=== PATIENT | female | born 1960 | race Caucasian/White ===

== ENCOUNTER → 2016-08-03 | Outpatient (REF) | payer BC | LOC: M SFHCPLAZ 16:54 | PROVIDERS: ATTEND Dermatology | DX: L01.00 Impetigo, unspecified (principal) ==

== ENCOUNTER → 2016-11-02 | Outpatient (REF) | payer BC, MEDICAID | LOC: M SFHCPLAZ 12:00 | PROVIDERS: ATTEND Dermatology | DX: L57.0 Actinic keratosis (principal) ==

== ENCOUNTER → 2016-12-29 | Outpatient (CLI) | payer BC, MEDICAID ==
--- NOTE | 2016-12-29 10:27 | REPMRS ---
Patient History The patient states she had a clinical breast exam in 12/10 Patient is postmenopausal and has history of skin cancer at age 39. Family history of breast cancer in paternal aunt under age 50 and breast cancer in paternal grandmother at age 50 or over. Taking unspecified hormones for 6 years. Digital Woman Screen Mammo: December 29, 2016 - Exam #: [id number] Bilateral CC and MLO view(s) were taken. Technologist: Theresa Seth, Technologist Prior study comparison: September 01, 2015, digital woman screen mammo performed at [facility]. August 19, 2014, digital woman screen mammo performed at [facility]. August 13, 2013, digital woman screen mammo performed at [facility]. FINDINGS: The breast tissue is heterogeneously dense. This may lower the sensitivity of mammography. There is a moderate amount of heterogeneously dense fibroglandular tissue which is fairly symmetric. There is no interval development of dominant mass, architectural distortion, or clustered microcalcification typical of malignancy. There has been no change in the appearance of the mammogram from the prior studies. ASSESSMENT: BI-RADS/ACR category 1 mammogram. Negative. Recommendation Routine screening mammogram of both breasts in 1 year (for women over age 40). This mammogram was interpreted with the aid of an FDA-approved computer-aided dectection system. Electronically Signed By: Jah Rosas MD 12/29/16 [id number]
== END ==
LOC: M WHC 08:32
PROVIDERS: ATTEND Obstetrics & Gynecology
DX: Z12.31 Encounter for screening mammogram for malignant neoplasm of breast (principal)

== ENCOUNTER → 2017-05-09 | Outpatient (CLI) | payer BC, MEDICAID ==
[~2017-05-09] MED LIST: ESTR1TAB PO; FISH1000 PO; LEXA1TAB PO; MONT10TA2 PO; MULT1TAB10 PO; VALS1TAB46 PO; VITA400C7 PO; VITA500T3 PO; ZYRT10TA2 PO
[2017-05-09 10:56] LABS: BASO % 0.4 % (0.0-1.0); EOS # 0.2 10^3/uL (0.0-0.50); EOS % 3.7 % (0.0-3.0); IMMATURE GRANULOCYTE % 0.2 % (0-0); LYMPH # 1.4 10^3/uL (1.5-4.5); LYMPH % 25.8 % (24.0-44.0); MEAN CORPUSCULAR HEMOGLOBIN 28.6 pg (27.0-33.0); MEAN CORPUSCULAR HGB CONC 32.1 g/dl (32.0-36.5); MEAN CORPUSCULAR VOLUME 89.2 fl (80.0-96.0); MONO # 0.4 10^3/uL (0.0-0.8); MONO % 8.1 % (0.0-5.0); NEUTROPHILS # 3.4 10^3/uL (1.8-7.7); NEUTROPHILS % 61.8 % (36.0-66.0); PLATELET COUNT, AUTOMATED 236 10^3/uL (150-450); RED CELL DISTRIBUTION WIDTH 13.4 % (11.5-14.5); WHITE BLOOD COUNT 5.5 10^3/uL (4.0-10.0)
[2017-05-09 11:30] LABS: ANION GAP 5 MEQ/L (8-16); BLOOD UREA NITROGEN 15 MG/DL (7-18); CALCIUM LEVEL 9.4 MG/DL (8.5-10.1); CARBON DIOXIDE LEVEL 33 MEQ/L (21-32); CHLORIDE LEVEL 103 MEQ/L (98-107); CREATININE FOR GFR 0.71 MG/DL (0.55-1.02); GLOMERULAR FILTRATION RATE > 60.0 (>51); GLUCOSE, FASTING 82 MG/DL (70-105); POTASSIUM SERUM 4.2 MEQ/L (3.5-5.1); SODIUM LEVEL 141 MEQ/L (136-145)
--- NOTE | 2017-05-11 00:29 | ECGEPIP ---
Stationary ECG Study [facility] Test Date: 2017-05-09 Pat Name: MAYRA POPE Department: Room: - Gender: F Assistant Center Director: AYESHA : 1960 Requested By: Vikash Mc Order Number: [id number] Reading MD: Giovani Peoples Measurements Intervals [place] Rate: 61 P: 63 KS: 179 QRS: 64 QRSD: 93 T: 56 QT: 429 QTc: 432 Interpretive Statements SINUS RHYTHM Prior tracing on 09/09/2013 at 10:00:10. Heart rate is now faster and there is better R-wave progression Electronically Signed On 05-11-2017 0:29:34 EST by Giovani Peoples
== END ==
LOC: M LAB 09:31
PROVIDERS: ATTEND Podiatrist
DX: Z01.818 Encounter for other preprocedural examination (principal)

== ENCOUNTER → 2017-05-24 | Outpatient (REF) | payer BC, MEDICAID | LOC: M SFHCLERA 11:48 | PROVIDERS: ATTEND Dermatology | DX: L57.0 Actinic keratosis (principal) ==

== ENCOUNTER 2017-05-26 07:21 | Day surgery (SDC) | payer BC, MEDICAID ==
[~2017-05-26] VITALS: Ht 170.2 cm; Wt 74.8 kg
[2017-05-26] MEDS ORDERED: LR 1,000 ML IV ONE (07:30)
[2017-05-26] MEDS ORDERED: dexameTHASONE 4 MG/ML 1ML VIAL (J1100) As Ordered ONE (08:33)
[2017-05-26] MEDS ORDERED: LIDOCAINE 2% MDV 20 ML VIAL As Ordered ONE (08:33)
[2017-05-26] MEDS ORDERED: BUPIVACAINE HCL 0.5% 30 ML VIAL As Ordered ONE (08:33)
[2017-05-26] MEDS ORDERED: BACITRACIN PWD 50,000 UNITS VIAL As Ordered ONE (08:34)
[2017-05-26] MEDS ORDERED: NEOSPORIN GU IRRIG 20 ML VIAL As Ordered ONE (08:34)
[2017-05-26] MEDS ORDERED: PROPOFOL 200 MG/20 ML VIAL As Ordered ONE ×2 (08:43→11:17)
[2017-05-26] MEDS ORDERED: LIDOCAINE 2% INJ 100 MG/5 ML SDV (FOR ANES.) As Ordered ONE (08:43)
[2017-05-26] MEDS ORDERED: MIDAZOLAM INJ 2 MG/2 ML VIAL (J2250) As Ordered ONE (08:44)
[2017-05-26] MEDS ORDERED: PROPOFOL 500 MG/50 ML VIAL As Ordered ONE (08:44)
[2017-05-26] MEDS ORDERED: fentaNYL 100 MCG/2 ML INJECTION (J3010) As Ordered ONE (08:44)
[2017-05-26] MEDS ORDERED: ceFAZolin 2 GM/D5W 50 ML IV BAG (J0690) As Ordered ONE (09:39)
[2017-05-26] MEDS ORDERED: LIDOCAINE 2% JELLY 30 ML As Ordered ONE (10:25)
[2017-05-26] MEDS ORDERED: KETOROLAC 60 MG/2 ML VIAL (J1885) As Ordered ONE (11:59)
--- NOTE | 2017-05-26 12:59 | REP ---
Right foot: Three views. History: Postop evaluation. Findings: An overlying dressing is seen. The patient is status post osteotomies of the proximal phalanges of the first two digits with metallic pins in place. The PIP joint of the second toe has been resected. There is a pin in place in the distal second metatarsal and previous osteotomy bunionectomy has been performed in the first metatarsal. Signed by Mariano Rosas MD 05/26/2017 02:44 P
[2017-05-26 13:00] VITALS: BP 182/76
--- NOTE | 2017-05-27 13:19 | RO ---
DATE OF PROCEDURE: 05/26/2017 Time of Dictation: 4:28 p.m. CHIEF COMPLAINT: Patient seen for evaluation of painful bunion deformity and hammertoe deformity of the second toe and painful second metatarsophalangeal joint of her right foot. PREOPERATIVE DIAGNOSIS: POSTPROCEDURE DIAGNOSIS: PROCEDURES: 1. Cosmo osteotomy with internal screw fixation 3.0 mm x 22 mm x 1. 2. Shortening metatarsal osteotomy, internal screw fixation 2 mm x 13 mm Arthrex QuickFix. 3. Arthroplasty with DigiFuse 2.0 x 10-degree angled. 4. Complete plantar plate repair second metatarsophalangeal joint, right foot. 5. Removal of screw first metatarsal right foot. SURGEON: Dr. Vikash Mc DPM [employer] LICENSEE: None. ANESTHESIA: Local MAC irrigation, dilute bacitracin, neomycin and polymyxin B solution IMPLANTS UTILIZED: Dart-Fire 3.0 x 22, QuickFix 2 mm x 13 mm and a DigiFuse 2.0 x 10-degree angled. DESCRIPTION OF PROCEDURE: On 05/26/2017, this 56-year-old white female was taken from her hospital room to the operating room and placed on the operating table in the supine position. Following the induction of intravenous (IV) sedation and local and regional anesthesia, the right lower extremity was prepped and draped in the usual aseptic manner. Attention was directed to the patient's right foot, and the following procedure was performed: REMOVAL OF SCREW FIRST METATARSAL RIGHT FOOT: Attention was directed to the patient's right foot, and there was noted to be a previous cicatrix over the first metatarsophalangeal joint. At this time, an incision was placed over the first metatarsal. Dissection was then carried down to the periosteum of the first metatarsal. Utilizing an osteotome, the bony overgrowth over the distal aspect of the screw was removed and a Synthes screw was removed from the first metatarsal. The following procedure was then performed: COSMO BUNIONECTOMY WITH INTERNAL SCREW FIXATION 3.0 x 22 mm x 1 RIGHT FOOT: Attention was directed to the patient's right foot, and the incision previously made for the first metatarsal screw was then extended distally to the interphalangeal joint of the hallux over the dorsal aspect medial to the extensor tendon. The incision was deepened through subcutaneous tissues, and all coursing venous tributaries were identified, underscored, clamped, cut, ligated and electrocoagulated as necessary. A linear capsulotomy was performed in the same plane as the original skin incision. The capsular and periosteal structure was then dissected free in one continuous layer dorsally, medially and laterally, thus creating a capsular periosteal-type envelope. Attention was directed into the first intermetatarsal space where the conjoined tendon was released off the fibular sesamoid. Attention was then directed to the proximal phalanx and the distal Cosmo osteotomy was performed. There was a long oblique wing with the base in a distal and medial orientation. After two wedge areas of bone were removed, the osteotomy was closed. Initially a 2.0 x 16 and 18 mm screws were placed across the osteotomy. Unfortunately, the threads did not purchase the distal side, and, therefore, incomplete fixation was obtained until a 3.0 x 22 mm screw was utilized. C-arm was utilized to verify placement and good reduction of the deformity was noted. The osteotomy was noted to be stable in all three cardinal planes. The wound was flushed with copious amounts of dilute bacitracin, neomycin and polymyxin B solution. Attention was directed towards closure where the capsular structures were coapted and maintained utilizing #2-0 Monocryl in a simple interrupted type fashion. Subcutaneous tissues were coapted and maintained with #4-0 Monocryl in a s simple interrupted type fashion. Skin incision was coapted and maintained utilizing #4-0 Prolene in a simple interrupted and horizontal mattress type fashion. Attention was then directed to the patient's second toe where the following procedure was performed: PROXIMAL INTERPHALANGEAL JOINT ARTHROPLASTY SECOND TOE, RIGHT FOOT: Attention was directed to the patient's second toe where there was noted to be a hammertoe deformity as well as an unstable second metatarsophalangeal joint. Incision was then placed from the proximal interphalangeal joint crossing obliquely across the metatarsophalangeal joint and then onto the shaft of the second metatarsal. The skin incision was then deepened and all coursing venous tributaries were electrocoagulated as encountered. A transverse tenotomy and capsulotomy was performed at the proximal interphalangeal joint and the dissection was then carried proximal, releasing the extensor expansion and peacock over the second metatarsophalangeal joint. Medial and lateral collateral ligaments were sharply dissected free over the proximal interphalangeal joint, and utilizing a sagittal saw, an osteotomy was performed at the anatomical neck of the proximal phalanx from dorsal to plantar, medial to lateral, through and through. Articular cartilage was then denuded with a sagittal saw off the base of the middle phalanx. Attention was then directed in a more proximal direction, and the following procedure was performed: COMPLETE PLANTAR PLATE REPAIR WITH SHORTENING SECOND METATARSAL OSTEOTOMY: A linear incision was then placed along the second metatarsophalangeal joint extending onto the shaft of the second metatarsal. Plantar plate was released with a metatarsal elevator and a Antoni osteotomy was performed paralleling the plantar surface of the foot. The osteotomy was shortened approximately 10 mm and temporarily fixated with a K-wire. Inspection of the plantar plate revealed a proximal tear through the plantar plate. This was mobilized and then fixated with #2 FiberWire through the plantar plate. Two diagonal drill holes were placed through the proximal phalanx, and these were then pulled to the dorsal aspect of the bone through these osseous tunnels with a fusion type retriever. The K-wire was removed, and the second metatarsal was then fixated with a 2 mm x 13 mm QuickFix screw. The osteotomy was noted to be stable in all three cardinal planes. The toe was plantar flexed, and the suture was tightened. The proximal interphalangeal joint was then stabilized with a 2 mm x 10-degree angled DigiFuse. Due to the length of the toe, the DigiFuse was not completely set into the middle phalanx. Good length was noted of the second toe when compared to the third. The extensor tendon was then coapted and maintained with a #4-0 braided nylon loop suture in a four-stranded core repair in a Gentile fashion. One peripheral stitch was then utilized to reinforce this repair. The wound was flushed with copious amounts of dilute bacitracin, neomycin and polymyxin B solution. Attention was directed towards closure where the capsular structures were coapted and maintained utilizing #2-0 Monocryl in a simple interrupted type fashion, subcutaneous tissue was coapted and maintained utilizing #4-0 Monocryl in a simple interrupted type fashion. Skin incision was coapted and maintained utilizing #4-0 Prolene with an apical stitch at the apex of the wound. The remaining sutures were simple interrupted and horizontal mattress type sutures. Attention was directed towards bandaging where a sterile compressive bandage was applied consisting of Adaptic, 4 x 4's, 4 x4 splints, George, Kerlix and Coban. Ankle pneumatic tourniquet was rapidly deflated and instantaneous capillary filling time was noted in digits 1-5 of the patient's right foot. Postoperative instructions given upon discharge.
== END 2017-05-26 14:11 | disposition home or self-care (01) ==
LOC: M SDC 07:21
PROVIDERS: ATTEND Podiatrist
DX: M20.11 Hallux valgus (acquired), right foot (principal); M20.41 Other hammer toe(s) (acquired), right foot; Z47.2 Encounter for removal of internal fixation device; I10 Essential (primary) hypertension; J30.2 Other seasonal allergic rhinitis; M50.221 Other cervical disc displacement at C4-C5 level; D64.9 Anemia, unspecified; E78.4 Other hyperlipidemia; Z88.2 Allergy status to sulfonamides; Z91.048 Other nonmedicinal substance allergy status; Z79.899 Other long term (current) drug therapy
CPT/HCPCS: 20680; 28285; 28298; 28308; 73630; 88300; 97116; C1713; J0690; J1100; J1885; J2250; J3010

== ENCOUNTER → 2017-11-06 | Outpatient (REF) | payer BC, MEDICAID | LOC: M SFHCLERA 09:14 | DX: L82.0 Inflamed seborrheic keratosis (principal) | CPT/HCPCS: 88305 ==

== ENCOUNTER → 2018-01-01 | Outpatient (CLI) | payer BC | LOC: M WHC 13:50 | DX: Z12.31 Encounter for screening mammogram for malignant neoplasm of breast (principal) | CPT/HCPCS: 77067 ==

== ENCOUNTER 2018-02-27 12:08 | Day surgery (SDC) | payer BC ==
[2018-02-27] MEDS ORDERED: PROPOFOL 200 MG/20 ML VIAL As Ordered ×2 (13:55→13:56)
== END 2018-02-27 15:20 | disposition home or self-care (01) ==
LOC: M OPP 12:08
DX: Z12.11 Encounter for screening for malignant neoplasm of colon (principal); K64.0 First degree hemorrhoids; I10 Essential (primary) hypertension; K46.9 Unspecified abdominal hernia without obstruction or gangrene; M54.2 Cervicalgia; Z79.899 Other long term (current) drug therapy; Z88.0 Allergy status to penicillin; Z88.8 Allergy status to other drugs, medicaments and biological substances; Z91.048 Other nonmedicinal substance allergy status; Z90.722 Acquired absence of ovaries, bilateral; Z90.710 Acquired absence of both cervix and uterus; Z85.828 Personal history of other malignant neoplasm of skin
CPT/HCPCS: 45378

== ENCOUNTER → 2018-05-09 | Outpatient (REF) | payer BC | LOC: M SFHCLERA 09:28 | DX: L81.4 Other melanin hyperpigmentation (principal) | CPT/HCPCS: 88305 ==

== ENCOUNTER → 2018-06-11 | Outpatient (REF) | payer BC ==
[~2018-06-11] MED LIST changes: +GABA-843 PO; +IBUP80TA PO; +ZYRT10CA5 PO; -ZYRT10TA2 PO
[2018-06-11 16:33] LABS: BASO % 0.4 % (0.0-1.0); EOS # 0.1 10^3/uL (0.0-0.50); EOS % 2.1 % (0.0-3.0); HEMATOCRIT 42.4 % (36.0-47.0); HEMOGLOBIN 13.4 g/dl (12.0-15.5); LYMPH # 1.3 10^3/uL (1.5-4.5); LYMPH % 24.9 % (24.0-44.0); MEAN CORPUSCULAR HGB CONC 31.6 g/dl (32.0-36.5); MEAN CORPUSCULAR VOLUME 88.7 fl (80.0-96.0); MONO # 0.3 10^3/uL (0.0-0.8); MONO % 5.8 % (0.0-5.0); NEUTROPHILS # 3.6 10^3/uL (1.8-7.7); NEUTROPHILS % 66.4 % (36.0-66.0); PLATELET COUNT, AUTOMATED 242 10^3/uL (150-450); RED BLOOD COUNT 4.78 10^6/uL (4.00-5.40); WHITE BLOOD COUNT 5.4 10^3/uL (4.0-10.0)
[2018-06-11 16:35] LABS: APPEARANCE, URINE CLEAR (CLEAR); BACTERIA, URINE AUTO 1+ (NEGATIVE); BILIRUBIN, URINE AUTO NEGATIVE (NEGATIVE); BLOOD, URINE BLOOD NEGATIVE (NEGATIVE); COLOR, URINE YELLOW (YELLOW); GLUCOSE, URINE (UA) AUTO NEGATIVE (NEGATIVE); KETONE, URINE AUTO NEGATIVE (NEGATIVE); LEUKOCYTE ESTERASE, URINE AUTO NEGATIVE (NEGATIVE); MUCUS, URINE SMALL (NEGATIVE); NITRITE, URINE AUTO NEGATIVE (NEGATIVE); PROTEIN, URINE AUTO NEGATIVE (NEGATIVE); RBC, URINE AUTO 2 /HPF (0-3); SPECIFIC GRAVITY URINE AUTO 1.017 (1.002-1.035); SQUAMOUS EPITHELIAL CELL UR AU 2 /HPF (0-6); UROBILINOGEN, URINE AUTO 0.2 mg/dL (0.0-2.0); WBC, URINE AUTO 0 /HPF (0-3)
[2018-06-11 16:45] LABS: ALBUMIN 3.8 GM/DL (3.2-5.2); ALT/SGPT 28 U/L (12-78); BILIRUBIN,TOTAL 0.3 MG/DL (0.2-1.0); BLOOD UREA NITROGEN 17 MG/DL (7-18); C REACTIVE PROTEIN QUANTITATIV 0.68 MG/DL (0.00-0.30); CALCIUM LEVEL 8.8 MG/DL (8.5-10.1); CARBON DIOXIDE LEVEL 30 MEQ/L (21-32); CHLORIDE LEVEL 105 MEQ/L (98-107); COMPLEMENT C3 127 MG/DL (90-180); COMPLEMENT C4 26 MG/DL (10-40); CPK CREATINE PHOSPHOKINASE 194 U/L (26-192); CREATININE FOR GFR 0.78 MG/DL (0.55-1.30); FREE T4 0.88 NG/DL (0.76-1.46); GLOMERULAR FILTRATION RATE > 60.0 (>51); GLUCOSE, FASTING 94 MG/DL (70-100); RHEUMATOID FACTOR QUANT < 10.0 IU/ML (<15.0); SODIUM LEVEL 140 MEQ/L (136-145); TOTAL PROTEIN 7.3 GM/DL (6.4-8.2)
[2018-06-11 16:47] LABS: TOTAL 25(OH) VITAMIN D 32.7 NG/ML (30.0-100.0)
[2018-06-11 16:54] LABS: TOTAL PROTEIN,RANDOM URINE 14.4 MG/DL (0.0-12.0)
[2018-06-11 17:06] LABS: ERYTHROCYTE SEDIMENTATION RATE 5 mm/hr (0-30)
[2018-06-12 12:50] LABS: DRVV SCREEN 37.4 SEC
[2018-06-12 12:55] LABS: PTT LUPUS TYPE ANTICOAG SCREEN 0.9 (0-1.2)
[2018-06-16 00:25] LABS: ANA (HEP2) Negative (.); ANTI DOUBLE STRAND-DNA AB 1 IU/mL (0-9); BETA-2 GLYCOPROTEIN I ABY IGA <9 (0-25); BETA-2 GLYCOPROTEIN I ABY IGG <9 (0-20); BETA-2 GLYCOPROTEIN I ABY IGM <9 (0-32); CARDIOLIPIN IGA ANTIBODY <9 APL U/mL (0-11); CARDIOLIPIN IGG ANTIBODY <9 GPL U/mL (0-14); CARDIOLIPIN IGM ANTIBODY <9 MPL U/mL (0-12); CYCLIC CITRULLINATED PEPTIDE 6 units (0-19); RNP ANTIBODY < 0.2 AI (0.0-0.9); SMITHS ANTIBODY < 0.2 AI (0.0-0.9); SSA SJOGRENS A <0.2 AI (0.0-0.9); SSB SJOGRENS B <0.2 AI (0.0-0.9)
== END ==
LOC: M SFHCPLAZ 14:09
PROVIDERS: ATTEND Internal Medicine Rheumatology
DX: R76.8 Other specified abnormal immunological findings in serum (principal)

== ENCOUNTER → 2018-12-25 | Outpatient (REF) | payer BC ==
[~2018-12-25] MED LIST changes: +CYAN500T8 PO; -VALS1TAB46 PO; +VALS1TAB66 PO; -VITA500T3 PO
== END ==
LOC: M SFHCPLAZ 09:37
PROVIDERS: ATTEND Dermatology
DX: D49.2 Neoplasm of unspecified behavior of bone, soft tissue, and skin (principal)

== ENCOUNTER → 2019-01-07 | Outpatient (CLI) | payer BC ==
--- NOTE | 2019-01-07 12:11 | REPMRS ---
Patient History The patient states she had a clinical breast exam in 12/2018. Patient is postmenopausal and has history of basal and squamous cell skin cancer starting at age 39. Family history of breast cancer at age 50 or over in paternal grandmother, breast cancer under age 50 in paternal aunt, breast cancer at age 51 in maternal cousin. Taking unspecified hormones for 8 years. 3D TOMOSYNTHESIS WAS PERFORMED. The [facility] lifetime risk for breast cancer is 13.2%. Digital Woman Screen Mammo: January 07, 2019 - Exam #: [id number] Bilateral CC and MLO view(s) were taken. Technologist: Akua Rodriguez, Technologist Prior study comparison: January 01, 2018, bilateral digital woman screen mammo performed at [facility]. December 29, 2016, digital woman screen mammo performed at [facility]. FINDINGS: The breast tissue is heterogeneously dense. This may lower the sensitivity of mammography. There has been no change in the appearance of the mammogram from the prior studies. There is a moderate amount of residual fibroglandular tissue which is fairly symmetric. There is no interval development of dominant mass, areas of architectural distortion, or clustered microcalcification typical of malignancy. Assessment: BI-RADS/ACR category 1 mammogram. Negative Mammogram. Recommendation Routine screening mammogram in 1 year (for women over age 40). This mammogram was interpreted with the aid of an FDA-approved computer-aided dectection system. Electronically Signed By: Sanford Calero MD 01/07/19 0204
== END ==
LOC: M WHC 11:06
PROVIDERS: ATTEND Obstetrics & Gynecology
DX: Z12.31 Encounter for screening mammogram for malignant neoplasm of breast (principal); Z78.0 Asymptomatic menopausal state; Z79.890 Hormone replacement therapy

== ENCOUNTER → 2019-02-26 | Outpatient (REF) | payer BC | LOC: M SFHCPLAZ 10:16 | PROVIDERS: ATTEND Dermatology | DX: D23.4 Other benign neoplasm of skin of scalp and neck (principal) ==

== ENCOUNTER → 2019-04-11 | Outpatient (REF) | payer BC | LOC: M SFHCPLAZ 10:27 | PROVIDERS: ATTEND Dermatology | DX: D49.2 Neoplasm of unspecified behavior of bone, soft tissue, and skin (principal) ==

== ENCOUNTER → 2019-07-25 | Outpatient (REF) | payer BC | LOC: M LAB REF 09:40 | PROVIDERS: ATTEND Dermatology | DX: L57.0 Actinic keratosis (principal); L11.1 Transient acantholytic dermatosis [Grover] ==

== ENCOUNTER → 2019-12-08 | Outpatient (CLI) | payer BC ==
[~2019-12-08] MED LIST changes: -MONT10TA2 PO; +MONT10TA4 PO
== END ==
LOC: M LABSMTC 09:56
PROVIDERS: ATTEND Orthopaedic Surgery
DX: Z03.818 Encounter for observation for suspected exposure to other biological agents ruled out (principal); Z11.59 Encounter for screening for other viral diseases

== ENCOUNTER → 2020-04-16 | Outpatient (CLI) | payer BC | LOC: M LABSMTC 13:55 | PROVIDERS: ATTEND Orthopaedic Surgery | DX: Z11.59 Encounter for screening for other viral diseases (principal) ==

== ENCOUNTER → 2020-04-21 | Outpatient (CLI) | payer BC | LOC: M LABSMTC 10:25 | PROVIDERS: ATTEND Orthopaedic Surgery | DX: Z20.828 Contact with and (suspected) exposure to other viral communicable diseases (principal) ==

== ENCOUNTER → 2020-12-15 | Outpatient (REF) | payer BC ==
[~2020-12-15] MED LIST changes: +CYAN500T14 PO; -CYAN500T8 PO; +GABA-282 PO; -GABA-843 PO; +MONT10TA10 PO; -MONT10TA4 PO
== END ==
LOC: M LAB REF 14:13
PROVIDERS: ATTEND Physician Assistant
DX: L57.0 Actinic keratosis (principal)

== ENCOUNTER → 2021-04-27 | Outpatient (REF) | payer BC ==
[2021-04-27 17:35] LABS: BASO % 0.4 % (0.0-1.0); EOS # 0.3 10^3/uL (0.0-0.5); EOS % 5.6 % (0.0-3.0); HEMATOCRIT 40.3 % (36.0-47.0); HEMOGLOBIN 12.4 g/dl (12.0-15.5); LYMPH # 1.4 10^3/uL (1.5-5.0); LYMPH % 24.6 % (24.0-44.0); MEAN CORPUSCULAR HEMOGLOBIN 27.3 pg (27.0-33.0); MEAN CORPUSCULAR HGB CONC 30.8 g/dl (32.0-36.5); MEAN CORPUSCULAR VOLUME 88.8 fl (80.0-96.0); MONO # 0.3 10^3/uL (0.0-0.8); MONO % 6.1 % (2.0-8.0); NEUTROPHILS # 3.5 10^3/uL (1.5-8.5); NEUTROPHILS % 63.1 % (36.0-66.0); PLATELET COUNT, AUTOMATED 258 10^3/uL (150-450); RED BLOOD COUNT 4.54 10^6/uL (4.00-5.40); WHITE BLOOD COUNT 5.6 10^3/uL (4.0-10.0)
[2021-04-27 17:38] LABS: APPEARANCE, URINE HAZY (CLEAR); BACTERIA, URINE AUTO NEGATIVE (NEGATIVE); BILIRUBIN, URINE AUTO NEGATIVE (NEGATIVE); BLOOD, URINE BLOOD NEGATIVE (NEGATIVE); COLOR, URINE YELLOW (YELLOW); GLUCOSE, URINE (UA) AUTO NEGATIVE (NEGATIVE); KETONE, URINE AUTO NEGATIVE (NEGATIVE); LEUKOCYTE ESTERASE, URINE AUTO NEGATIVE (NEGATIVE); MUCUS, URINE SMALL (NEGATIVE); NITRITE, URINE AUTO NEGATIVE (NEGATIVE); PROTEIN, URINE AUTO NEGATIVE (NEGATIVE); RBC, URINE AUTO 1 /HPF (0-3); SPECIFIC GRAVITY URINE AUTO 1.019 (1.002-1.035); SQUAMOUS EPITHELIAL CELL UR AU 4 /HPF (0-6); WBC, URINE AUTO 1 /HPF (0-3)
[2021-04-27 18:00] LABS: TOTAL PROTEIN,RANDOM URINE 16.1 MG/DL (0.0-12.0)
[2021-04-27 18:03] LABS: ALBUMIN 3.5 GM/DL (3.2-5.2); ALT/SGPT 25 U/L (12-78); BILIRUBIN,TOTAL 0.2 MG/DL (0.2-1.0); BLOOD UREA NITROGEN 22 MG/DL (7-18); C REACTIVE PROTEIN QUANTITATIV 0.96 MG/DL (0.00-0.30); CALCIUM LEVEL 8.9 MG/DL (8.5-10.1); CARBON DIOXIDE LEVEL 34 MEQ/L (21-32); CHLORIDE LEVEL 106 MEQ/L (98-107); COMPLEMENT C3 108 MG/DL (90-180); COMPLEMENT C4 27 MG/DL (10-40); CREATININE FOR GFR 0.92 MG/DL (0.55-1.30); GLOMERULAR FILTRATION RATE > 60.0 (>51); GLUCOSE, FASTING 98 MG/DL (70-100); POTASSIUM SERUM 3.8 MEQ/L (3.5-5.1); SODIUM LEVEL 141 MEQ/L (136-145); TOTAL PROTEIN 6.7 GM/DL (6.4-8.2)
[2021-04-27 18:10] LABS: ERYTHROCYTE SEDIMENTATION RATE 14 mm/hr (0-30)
== END ==
LOC: M SFHCRHEU 13:52
PROVIDERS: ATTEND Internal Medicine Rheumatology
DX: R76.8 Other specified abnormal immunological findings in serum (principal)

== ENCOUNTER → 2022-03-02 | Outpatient (REF) | payer BC, OTHER ==
[~2022-03-02] MED LIST changes: -MONT10TA10 PO; +MONT10TA97 PO
== END ==
LOC: M SFHCDERM 17:32
PROVIDERS: ATTEND Physician Assistant
DX: L82.0 Inflamed seborrheic keratosis (principal)

== ENCOUNTER → 2022-08-22 | Outpatient (REF) | payer OTHER | LOC: M SFHCDERM 17:33 | PROVIDERS: ATTEND Physician Assistant | DX: C44.529 Squamous cell carcinoma of skin of other part of trunk (principal) ==

== ENCOUNTER → 2022-10-05 | Outpatient (REF) | payer OTHER | LOC: M LAB REF 15:52 | PROVIDERS: ATTEND Surgery | DX: L90.5 Scar conditions and fibrosis of skin (principal); Z85.828 Personal history of other malignant neoplasm of skin ==

== ENCOUNTER → 2022-10-05 | Outpatient (REF) | payer OTHER | LOC: M SFHCDERM 15:12 | PROVIDERS: ATTEND Physician Assistant | DX: C44.712 Basal cell carcinoma of skin of right lower limb, including hip (principal) ==

== ENCOUNTER → 2024-04-22 | Outpatient (REF) | payer OTHER, MEDICAID ==
[~2024-04-22] MED LIST changes: +GABA-1172 PO; -GABA-282 PO
== END ==
LOC: M SFHCDERM 08:04
PROVIDERS: ATTEND Physician Assistant
DX: L57.0 Actinic keratosis (principal)